=== PATIENT | male | born 1960 | race Caucasian/White ===

== ENCOUNTER 2016-12-21 00:29 | Emergency (ER) | payer OTHER ==
[2016-12-21 00:49] VITALS: BP 149/99; PULSE 131; TEMP 98.4; BMI 26.1
[2016-12-21] MEDS ORDERED: ONDANSETRON 4 MG/2 ML VIAL IVPUSH ONE (00:50)
[2016-12-21] MEDS ORDERED: SODIUM CHLORIDE 0.9% 500 ML INFUS.BAG IV ONE (00:50)
[2016-12-21] MEDS ORDERED: FAMOTIDINE 20 MG/50 ML IVPB 50 ML IVPB ONE (00:50)
--- NOTE | 2016-12-21 00:51 | PDOC ---
History of Present Illness - General Chief Complaint: Nausea/Vomiting Stated Complaint: VOMITTING Time Seen by Provider: 12/21/16 00:46 History Source: Patient Exam Limitations: No Limitations - History of Present Illness Initial Comments: 12/21/16 00:47 Patient is a 56 year old male with h/o gastric ulcer with ligation c/o nausea and vomiting since this evening after dinner. States has some abdominal pain prior to vomiting, many episodes, now vomiting and abdominal pain is resolved. States still "does not feel good" unable to explain his symptoms. Mother in the ED states that the patient was drinking this evening beers and does not know if he had other spirits to drink. Denies chest pain, dizziness, sob. PMD: Dr. Pancho Valle PMHX: as above PSocHX: (+) cig, (+) etoh, (-) drug FamHx: Noncontributory ALL: NKDA GENERAL/CONSTITUTIONAL: [No fever or chills. No weakness. No weight change.] HEAD, EYES, EARS, NOSE AND THROAT: [No change in vision. No ear pain or discharge. No sore throat.] CARDIOVASCULAR: [No chest pain or shortness of breath.] RESPIRATORY: [No cough, wheezing, or hemoptysis.] GASTROINTESTINAL: (+) nausea, vomiting, (-) diarrhea or constipation. No rectal bleeding.] GENITOURINARY: [No dysuria, frequency, or change in urination.] MUSCULOSKELETAL: [No joint or muscle swelling or pain. No neck or back pain.] SKIN AND BREASTS: [No rash or easy bruising.] NEUROLOGIC: [No headache, vertigo, loss of consciousness, or loss of sensation.] PSYCHIATRIC: [No depression or anxiety.] ENDOCRINE: [No increased thirst. No abnormal weight change.] HEMATOLOGIC/LYMPHATIC: [No anemia, easy bleeding, or history of blood clots.] ALLERGIC/IMMUNOLOGIC: [No hives or skin allergy. No latex allergy.] GENERAL: [The patient is awake, alert, and fully oriented, in no acute distress. ] HEAD: [Normal with no signs of trauma.] EYES: [Pupils equal, round and reactive to light, extraocular movements intact, sclera anicteric, conjunctiva clear.] ENT: [Ears normal, nares patent, oropharynx clear without exudates. Moist mucous membranes.] NECK: [Normal range of motion, supple without lymphadenopathy, JVD, or masses.] LUNGS: [Breath sounds equal, clear to auscultation bilaterally. No wheezes, and no crackles.] HEART: [Regular rate and rhythm, normal S1 and S2 without murmur, rub.] ABDOMEN: [Soft, nontender, normoactive bowel sounds. No guarding, no rebound. No masses.] EXTREMITIES: [Normal range of motion, no edema. No clubbing or cyanosis. No cords, erythema, or tenderness.] NEUROLOGICAL: [Cranial nerves II through XII grossly intact. Normal speech, normal gait.] PSYCH: [Normal mood, normal affect.] SKIN: [Warm, Dry, normal turgor, no rashes or lesions noted.] Past History - Past Medical History Allergies/Adverse Reactions: Allergies Allergy/AdvReac Type Severity Reaction Status Date / Time No Known Allergies Allergy Verified 05/17/14 15:06 Home Medications: Ambulatory Orders Ascorbic Acid [Vitamin C -] 500 mg PO BID #60 tablet 05/20/14 Ferrous Sulfate [Feosol] 325 mg PO BID #60 ud 05/20/14 Mag Hydrox/Al Hydrox/Simeth [MAALOX *SUSPENSION* -] 30 ml PO Q6HPO #1 bottle 07/22 Pantoprazole Sodium [Protonix -] 40 mg PO BID #60 tablet.ec 05/20/14 GI Disorders: Yes (bleeding ulcer) - Surgical History Abdominal Surgery: Yes (bleeding ulcer) - Psycho/Social/Smoking Cessation Hx Anxiety: No Suicidal Ideation: No Smoking History: Former smoker Have you smoked in the past 12 months: No If you are a former smoker, when did you quit?: 6 years ago Hx Alcohol Use: No Drug/Substance Use Hx: No Substance Use Type: None Hx Substance Use Treatment: No ED Treatment Course - LABORATORY CBC & Chemistry Diagram: 12/21/16 00:36 12/21/16 00:36 Medical Decision Making - Medical Decision Making 12/21/16 00:48 Patient is a 56-year-old male with history of gastric ulcers, ligation, complaining of an of nausea and vomiting since this evening and abd pain prior and exam tachycardiac. Most likely dehydaratin due to etoh, and vomiting. IVF, pepcid, labs. Patient has decided to sign out AMA. Advised of the risk includes *DC/Admit/Observation/Transfer Diagnosis at time of Disposition: AMA - Signed out against medical advice Nausea & vomiting Qualifiers: Vomiting type: unspecified Vomiting Intractability: unspecified Qualified Code( s): R11.2 - Nausea with vomiting, unspecified - Discharge Dispostion Disposition: AGAINST MEDICAL ADVICE - Referrals Referrals: Pancho Valle MD [Primary Care Provider] -
[2016-12-21] MEDS ORDERED: FAMOTIDINE 20 MG/50 ML IVPB ONE (00:57)
[2016-12-21 01:07] LABS: BASOPHIL 0.9 % (0-2.0); EOSINOPHIL 0.1 % (0-4.5); MCH 31.3 pg (25.7-33.7); MCHC 33.5 g/dl (32.0-35.9); MEAN CELL VOLUME 93.5 fl (80-96); MEAN PLT VOLUME 6.8 fl (7.5-11.1); NEUTROPHILS 56.7 % (42.8-82.8); PLATELET COUNT 248 K/MM3 (134-434); RDW 13.3 % (11.9-15.9); WHITE BLOOD COUNT 6.5 K/mm3 (4.0-10.0)
[2016-12-21 01:33] LABS: ALBUMIN 4.2 g/dl (3.4-5.0); ALK PHOS 81 U/L (45-117); ANION GAP 14 (8-16); BILIRUBIN,TOTAL 0.2 mg/dL (0.2-1.0); CALCIUM 9.3 mg/dL (8.5-10.1); CO2 24 mmol/L (21-32); COCKROFT - GAULT 85.72; GLUCOSE,RANDOM 120 mg/dL (74-106); SGOT/AST 22 U/L (15-37); SGPT/ALT 43 U/L (12-78); TOT PROT 7.4 g/dl (6.4-8.2)
== END 2016-12-21 01:11 | disposition left against medical advice (07) ==
LOC: JER 00:29
DX: R11.2 Nausea with vomiting, unspecified (principal); Z87.19 Personal history of other diseases of the digestive system
CPT/HCPCS: 36415; 80053; 80307; 85025; 99282-25